=== PATIENT | male | born 1990 | race Caucasian/White ===

== ENCOUNTER 2017-05-15 00:33 | Emergency (ER) | payer OTHER ==
[2017-05-15 01:11] VITALS: BP 125/65; PULSE 81; TEMP 98.2; BMI 25.0
--- NOTE | 2017-05-15 01:17 | PDOC ---
History of Present Illness - General History Source: Patient Exam Limitations: No Limitations - History of Present Illness Initial Comments: 05/15/17 01:22 The patient is a 26 year old male with a history of panic attacks (no medications), who presents today with a sudden onset of "weakness" that woke him from sleep this morning, followed by midsternal chest pain after using the bathroom. The patient states he has been stressed recently. He reports recent travels to [facility] a week ago. He denies peuritic chest pain. He denies any alleviating or exacerbating factors of his pain. He denies recent illnesses or sick contacts. He states he was weight lifting yesterday and "felt a strain to my heart". He denies chest pain yesterday. He states he usually just tries to calm himself down when he is stressed. He denies palpitations, SOB, fever, chills, cough, nausea, vomiting, diarrhea, constipation. <Ashley Ramos - Last Filed: 05/15/17 01:22> <Ronna Kaufman - Last Filed: 05/15/17 02:08> - General Chief Complaint: Psychiatric Stated Complaint: CHEST PAIN Time Seen by Provider: 05/15/17 01:10 Past History <Ashley Ramos - Last Filed: 05/15/17 01:22> - Suicide/Smoking/Psychosocial Hx Smoking History: Never smoked Have you smoked in the past 12 months: No Information on smoking cessation initiated: No Hx Alcohol Use: No Drug/Substance Use Hx: No <Ronna Kaufman - Last Filed: 05/15/17 02:08> - Past Medical History Allergies/Adverse Reactions: Allergies Allergy/AdvReac Type Severity Reaction Status Date / Time No Known Allergies Allergy Verified 05/15/17 00:59 Review of Systems - Review of Systems Able to Perform ROS?: Yes Comments:: 05/15/17 01:28 GENERAL/CONSTITUTIONAL: (+) generalized weakness. No fever or chills. HEAD, EYES, EARS, NOSE AND THROAT: No change in vision. No ear pain or discharge. No sore throat. GASTROINTESTINAL: No nausea, vomiting, diarrhea or constipation. GENITOURINARY: No dysuria, frequency, or change in urination. CARDIOVASCULAR: (+) chest pain. No shortness of breath. RESPIRATORY: No cough, wheezing, or hemoptysis. MUSCULOSKELETAL: No joint or muscle swelling or pain. No neck or back pain. SKIN: No rash NEUROLOGIC: No headache, vertigo, loss of consciousness, or change in strength/ sensation. ENDOCRINE: No increased thirst. No abnormal weight change. HEMATOLOGIC/LYMPHATIC: No anemia, easy bleeding, or history of blood clots. ALLERGIC/IMMUNOLOGIC: No hives or skin allergy. PSYCHIATRIC: (+) anxiety. <Ashley Ramos - Last Filed: 05/15/17 01:22> *Physical Exam - Vital Signs Last Vital Signs Temp Pulse Resp BP Pulse Ox 98.2 F 81 14 125/65 100 05/15/17 00:59 05/15/17 00:59 05/15/17 00:59 05/15/17 00:59 05/15/17 00:59 - Physical Exam Comments: 05/15/17 01:29 Constitutional: (+) anxious appearing. Awake, alert, oriented. No acute distress. Head: Normocephalic. Atraumatic Eyes: PERRL. EOMI. Conjunctivae are not pale. ENT: Mucous membranes are moist and intact. Posterior pharynx without exudates or erythema. Uvula midline. Neck: Supple. Full ROM. No lymphadenopathy. Cardiovascular: Regular rate. Regular rhythm. S1, S2 regular. Distal pulses are 2+ and symmetric. Pulmonary/Chest: No evidence of respiratory distress. Clear to auscultation bilaterally No wheezing, rales or rhonchi. Abdominal: Soft and non-distended. There is no tenderness. No rebound, guarding or rigidity. No organomegaly. No palpable masses. Good bowel sounds. Back: No CVA tenderness. Musculoskeletal: No edema. No cyanosis. No clubbing. Full range of motion in all extremities. Nocalf tenderness. Radial/pedal pulses are intact and 2+ bilaterally Skin: Skin is warm and dry. No petechiae. No purpura. Neurological: Alert and oriented to person, place, and time. Cranial nerves II -XII are grossly intact. Normal speech. Strength is grossly symmetric. No sensory deficits. Psychiatric: (+) anxious. Good eye contact. Denies SI/HI. <Ashley Ramos - Last Filed: 05/15/17 01:22> - Vital Signs Last Vital Signs Temp Pulse Resp BP Pulse Ox 98.2 F 81 14 125/65 100 05/15/17 00:59 05/15/17 00:59 05/15/17 00:59 05/15/17 00:59 05/15/17 00:59 <Ronna Kaufman - Last Filed: 05/15/17 02:08> Heart Score/ECG Review - ECG Intrepretation Comment:: 05/15/17 01:48 sinus at 75, nl axis, nl interval, no acute s/t twave findings <Ronna Kaufman - Last Filed: 05/15/17 02:08> Medical Decision Making - Medical Decision Making 05/15/17 01:17 a/p: 26yo male with cp and anxiety -will check ekg and cxr -pt appear anxious -PERC negative -no fam hx of sudden cardiac -pt with hx of panic attacks and states he has felt stressed -will monitor and reassess 05/15/17 01:49 cxr without acute findings 05/15/17 02:06 pt feeling much better. no pain at this time states he was stressed earlier and feels better now states he will follow up with his PMD. All questions answered. Pt stable for d/ c to home. <Ronna Kaufman - Last Filed: 05/15/17 02:08> *DC/Admit/Observation/Transfer - Attestations Scribe Attestion: 05/15/17 01:30 Documentation prepared by Ashley Ramos, acting as medical diagnostic radiographer for Ronna Kaufman DO, <Ashley Ramos - Last Filed: 05/15/17 01:22> - Discharge Dispostion Admit: No - Attestations Physician Attestion: 05/15/17 02:08 I, Dr. Ronna Kaufman DO, attest that this document has been prepared under my direction and personally reviewed by me in its entirety. I further attest, that it accurately reflects all work, treatment, procedures and medical decision -making performed by me. <Ronna Kaufman - Last Filed: 05/15/17 02:08> Diagnosis at time of Disposition: Acute stress reaction - Discharge Dispostion Disposition: HOME Condition at time of disposition: Stable - Referrals Referrals: Ronen Webber [Primary Care Provider] - - Patient Instructions Printed Discharge Instructions: DI for Anxiety -- Adult Additional Instructions: Please make an appointment to see your PMD. Please return to the ED with any further complaints. - Post Discharge Activity
--- NOTE | 2017-05-15 14:45 | EKG ---
Test Reason : Blood Pressure : / mmHG Vent. Rate : 075 BPM Atrial Rate : 075 BPM P-R Int : 152 ms QRS Dur : 088 ms QT Int : 358 ms P-R-T Axes : 070 063 047 degrees QTc Int : 399 ms NORMAL SINUS RHYTHM NORMAL ECG NO PREVIOUS ECGS AVAILABLE Confirmed by Will Baca MD ([id number]) on 05/15/2017 2:45:16 PM Referred By: Confirmed By:Will Baca MD
== END 2017-05-15 03:15 | disposition home or self-care (01) ==
LOC: JER 00:33
DX: F43.0 Acute stress reaction (principal)
CPT/HCPCS: 71045-TC; 93005; 93010; 99282-25